=== PATIENT | female | born 1985 | race Hispanic/Latino ===

== ENCOUNTER 2019-05-04 12:38 | Outpatient (CLI) | payer OTHER ==
[~2019-05-04 12:38] MED LIST: Iopamidol 370 76% 100 ML VIAL ONE
--- NOTE | 2019-05-04 13:25 | CT ---
CT Abdomen Pelvis W Con: 05/04/2019 12:00 AM CLINICAL INFORMATION: Abdominal pain with nausea and vomiting COMPARISON: 12/08/2012 TECHNIQUE: Multiple contiguous axial images were obtained and a CT of the abdomen and pelvis with IV contrast. Oral contrast was administered. Coronal and sagittal reformats were performed. FINDINGS: Lower Chest: within normal limits. Abdomen: Liver: within normal limits. Bile Ducts: Normal caliber. Gallbladder: Removed Pancreas: within normal limits. Spleen: within normal limits. Adrenals: within normal limits. Kidneys: 1.2 cm right renal cyst. Pelvis: Reproductive Organs: No pelvic masses. Ureters: within normal limits. Bladder: within normal limits. Peritoneum: No ascites or free air, no fluid collection. Bowel: Normal caliber. Postsurgical changes in the stomach. Mesentery and Retroperitoneum: No enlarged mesenteric or retroperitoneal lymph nodes. Vessels: Normal. Abdominal Wall: within normal limits. Bones: Within normal limits IMPRESSION: 1. No evidence of acute intraabdominal or pelvic abnormality. 2. Interval postsurgical change in the stomach with resolution of the previously seen fatty liver.
== END 2019-05-04 12:39 | disposition home or self-care (01) ==
LOC: CT 12:38
PROVIDERS: ATTEND Internal Medicine Gastroenterology
DX: K56.609 Unspecified intestinal obstruction, unspecified as to partial versus complete obstruction (principal)
CPT/HCPCS: 74177